=== PATIENT | male | born 1980 | race Caucasian/White ===

== ENCOUNTER 2016-10-12 18:18 | Emergency (ER) | payer MEDICAID ==
[~2016-10-12] VITALS: Ht 180.3 cm; Wt 72.2 kg
[2016-10-12 18:21] VITALS: BP 117/87
[2016-10-12] MEDS ORDERED: LORazepam 1MG TABLET PO ONE (18:30)
[2016-10-12] MEDS ORDERED: ONDANSETRON ODT 4 MG PO ONE (18:30)
== END 2016-10-12 18:43 | disposition left against medical advice (07) ==
LOC: ED 18:30
DX: F41.9 Anxiety disorder, unspecified (principal); R11.10 Vomiting, unspecified
CPT/HCPCS: 99281

== ENCOUNTER 2016-12-10 11:03 | Emergency (ER) | payer MEDICAID ==
[~2016-12-10] VITALS: Ht 170.2 cm; Wt 70.0 kg
[2016-12-10 11:16] VITALS: BP 124/83
[2016-12-10] MEDS ORDERED: ESCI10TA10 PO (11:35)
[2016-12-10] MEDS ORDERED: DEXT10TA7 PO (11:35)
[2016-12-10] MEDS ORDERED: ZOLP10TA PO (11:35)
[2016-12-10] MEDS ORDERED: TRAM50TA2 PO (11:35)
[2016-12-10 11:53] LABS: ASPARTATE AMINO TRANSFERASE 19 U/L (15-37); BLOOD UREA NITROGEN 12 mg/dL (7-18)
[2016-12-10 11:59] LABS: ACETAMINOPHEN < 2 mcg/mL (10-30)
[2016-12-10 15:10] LABS: DAU SCREEN DISCLAIMER
== END 2016-12-10 16:23 | disposition home or self-care (01) ==
LOC: ED 14:03
DX: F32.0 Major depressive disorder, single episode, mild (principal); F41.1 Generalized anxiety disorder
CPT/HCPCS: 36415; 80053; 80307; 80329; 85025; 99284; G0480

== ENCOUNTER 2017-09-11 21:06 | Emergency (ER) | payer MEDICAID ==
[~2017-09-11] VITALS: Ht 180.3 cm; Wt 85.0 kg
[~2017-09-11 21:06] MED LIST: DEXT10TA7 PO; ESCI10TA10 PO; TRAM50TA2 PO; ZOLP10TA PO
[2017-09-11 21:15] VITALS: BP 154/91
[2017-09-11] MEDS ORDERED: LORazepam 1MG TABLET PO ONE (22:00)
[2017-09-12] MEDS ORDERED: OLANZAPINE 10 MG TABLET PO SCH (09:00)
== END 2017-09-11 22:06 | disposition left against medical advice (07) ==
LOC: ED 22:00
DX: F41.1 Generalized anxiety disorder (principal); F17.200 Nicotine dependence, unspecified, uncomplicated; F32.9 Major depressive disorder, single episode, unspecified
CPT/HCPCS: 99284

== ENCOUNTER 2018-04-29 11:45 | Emergency (ER) | payer MEDICAID ==
[~2018-04-29] VITALS: Ht 180.3 cm; Wt 74.9 kg
[2018-04-29] MEDS ORDERED: LORazepam 1MG TABLET PO ONE (12:00)
[2018-04-29] MEDS ORDERED: LORazepam 1MG TABLET ONE (12:23)
[2018-04-29 12:28] VITALS: BP 140/96
== END 2018-04-29 13:17 | disposition home or self-care (01) ==
LOC: ED 13:00
DX: F41.1 Generalized anxiety disorder (principal); F43.10 Post-traumatic stress disorder, unspecified; F32.9 Major depressive disorder, single episode, unspecified; Z72.9 Problem related to lifestyle, unspecified
CPT/HCPCS: 93005; 99283

== ENCOUNTER 2018-10-10 02:25 | Inpatient (IN) | payer MEDICAID ==
[~2018-10-10] VITALS: Ht 180.3 cm; Wt 83.0 kg
--- NOTE | 2018-10-10 02:39 | NUR ---
PT STATES VOMITED BLOOD SINCE 4 PM YESTERDAY S/P USING METH, PT STATES IT HAPPENS ONCE A MONTH AND NOW HE DOESNT HAVE A PLACE TO LIVE
[2018-10-10] MEDS ORDERED: ONDANSETRON ODT 4 MG ONE (02:55)
[2018-10-10] MEDS ORDERED: ONDANSETRON ODT 4 MG PO ONE (03:00)
[2018-10-10 03:27] LABS: BASOPHILS # (AUTO) 0.07 x10^3/uL (0-0.1); BASOPHILS % (AUTO) 1 % (0-1); EOSINOPHILS # (AUTO) 0.07 x10^3/uL (0-0.4); EOSINOPHILS % (AUTO) 1 % (1-7); LYMPHOCYTES # (AUTO) 1.69 x10^3/uL (1-3.4); LYMPHOCYTES % (AUTO) 15 % (22-44); MD NO; MEAN CORPUSCULAR HEMOGLOBIN 27.9 pg (27.5-34.5); MEAN CORPUSCULAR HGB CONC 32.9 g/dL (33.2-36.2); MEAN CORPUSCULAR VOLUME 84.5 fL (81-97); MEAN PLATELET VOLUME 8.5 fL (7.4-10.4); MONOCYTES # (AUTO) 0.99 x10^3/uL (0.2-0.8); MONOCYTES % (AUTO) 9 % (2-9); NEUTROPHILS # (AUTO) 8.63 x10^3/uL (1.8-6.8); NEUTROPHILS % (AUTO) 75 % (42-75); PLATELET COUNT 318 x10^3/uL (130-400); RED BLOOD COUNT 5.28 x10^6/uL (4.38-5.82)
[2018-10-10 03:41] LABS: ALBUMIN 4.1 g/dL (3.4-5.0); ANION GAP 11 mmol/L (5-15); CALCIUM 9.3 mg/dL (8.5-10.1); CHLORIDE 100 mmol/L (98-107)
[2018-10-10 03:45] LABS: ALANINE AMINOTRANSFERASE 36 U/L (12-78); ALKALINE PHOSPHATASE 117 U/L (45-117); CREATININE 2.15 mg/dL (0.7-1.3); TOTAL PROTEIN 8.9 g/dL (6.4-8.2)
--- NOTE | 2018-10-10 03:45 | NUR ---
PT ASLEEP AND AWAITING ERP RECHECK.
[2018-10-10] MEDS ORDERED: PANTOPRAZOLE 40 MG IV ONE (04:26)
[2018-10-10] MEDS ORDERED: ACETAMINOPHEN 500 MG TABLET ONE (04:26)
[2018-10-10] MEDS ORDERED: ONDANSETRON 2MG/ML, 2ML ONE (04:26)
[2018-10-10] MEDS ORDERED: PANTOPRAZOLE 40 MG IV IVPush ONE (04:30)
[2018-10-10] MEDS ORDERED: SODIUM CHLORIDE 0.9% 1,000ML IVBOLUS ONE ×2 (04:30)
[2018-10-10] MEDS ORDERED: ONDANSETRON 2MG/ML, 2ML IVPush ONE (04:30)
[2018-10-10] MEDS ORDERED: ACETAMINOPHEN 325 MG TABLET PO ONE (04:30)
--- NOTE | 2018-10-10 04:30 | NUR ---
PT ASLEEP VSS AND NO DISTRESS AT THIS TIME.
[2018-10-10] MEDS ORDERED: SODIUM CHLORIDE 0.9% 1,000 ML IV SCH (04:46)
[2018-10-10] MEDS ORDERED: morphine SULFATE 10 MG/ML, 1ML IVPush PRN (05:00)
[2018-10-10] MEDS ORDERED: ONDANSETRON 2MG/ML, 2ML IVPush PRN (05:00)
[2018-10-10] MEDS ORDERED: LORazepam 2 MG/ML, 1ML IV PRN ×5 (05:00)
--- NOTE | 2018-10-10 06:24 | NUR ---
Romel jeffers in ED - 10/10/18 at 0625 by BRYNN PT WITH IV STARTED URINE TO LAB AND PT MEDICATED ORDERED. PT WITH IVF RUNNING ORDERED AND AWAITING TEST RESULTS AND ERP RECHECK.
--- NOTE | 2018-10-10 06:26 | NUR ---
PT ASLEEP NO CHANGE AND IS A TELE HOLD AT THIS TIME.
--- NOTE | 2018-10-10 06:47 | NUR ---
REPORT CALLED TO FLOOR PT READY FOR TRANSPORT.
[2018-10-10 07:31] VITALS: BP 106/63
[2018-10-10 08:40] LABS: AMPHETAMINE SCREEN, URINE Positive (Negative); BARBITURATE SCREEN, URINE Negative (Negative); BENZODIAZEPINE SCREEN, URINE Negative (Negative); CANNABINOID SCREEN, URINE Positive (Negative); COCAINE SCREEN, URINE Negative (Negative); METHADONE SCREEN, URINE Negative (Negative); OPIATE SCREEN, URINE Negative (Negative)
[2018-10-10] MEDS: LACTATED RINGERS 1,000 ML IV SCH ×3 (10:11→22:35)
[2018-10-10] MEDS ORDERED: POTASSIUM CHLORIDE 20 MEQ, MAGNESIUM SULFATE 1 GM, MVI ADULT 10 ML, THIAMINE 200 MG, FO... IV SCH (10:30)
[2018-10-10] MEDS: PANTOPRAZOLE 40 MG IV IVPush SCH (12:39)
[2018-10-10 12:42] LABS: BASOPHILS # (AUTO) 0.03 x10^3/uL (0-0.1); BASOPHILS % (AUTO) 0 % (0-1); EOSINOPHILS # (AUTO) 0.18 x10^3/uL (0-0.4); EOSINOPHILS % (AUTO) 2 % (1-7); LYMPHOCYTES # (AUTO) 2.09 x10^3/uL (1-3.4); LYMPHOCYTES % (AUTO) 25 % (22-44); MD NO; MEAN CORPUSCULAR HEMOGLOBIN 27.9 pg (27.5-34.5); MEAN CORPUSCULAR HGB CONC 32.9 g/dL (33.2-36.2); MEAN CORPUSCULAR VOLUME 84.9 fL (81-97); MEAN PLATELET VOLUME 8.6 fL (7.4-10.4); MONOCYTES # (AUTO) 0.78 x10^3/uL (0.2-0.8); MONOCYTES % (AUTO) 9 % (2-9); NEUTROPHILS % (AUTO) 63 % (42-75); PLATELET COUNT 265 x10^3/uL (130-400); RED BLOOD COUNT 4.59 x10^6/uL (4.38-5.82); RED CELL DISTRIBUTION WIDTH 15.1 % (9.4-14.8)
[2018-10-10] MEDS ORDERED: BUPR-86 PO (12:46)
[2018-10-10] MEDS ORDERED: GABA600T PO (12:46)
[2018-10-10] MEDS ORDERED: CLON0.5T11 PO (12:46)
[2018-10-10] MEDS ORDERED: POTASSIUM CHLORIDE 20 MEQ TAB.ER.PRT PO ONE (13:30)
[2018-10-10 15:30] VITALS: BP 110/76
[2018-10-10 21:54] VITALS: BP 116/65
[2018-10-11] MEDS: PANTOPRAZOLE 40 MG IV IVPush SCH (00:14)
[2018-10-11 01:04] VITALS: BP 114/72
[2018-10-11] MEDS: LACTATED RINGERS 1,000 ML IV SCH ×2 (04:51→05:58)
[2018-10-11 06:44] LABS: BASOPHILS # (AUTO) 0.02 x10^3/uL (0-0.1); BASOPHILS % (AUTO) 0 % (0-1); EOSINOPHILS # (AUTO) 0.24 x10^3/uL (0-0.4); EOSINOPHILS % (AUTO) 4 % (1-7); LYMPHOCYTES # (AUTO) 2.58 x10^3/uL (1-3.4); LYMPHOCYTES % (AUTO) 43 % (22-44); MD NO; MEAN CORPUSCULAR HEMOGLOBIN 27.5 pg (27.5-34.5); MEAN CORPUSCULAR HGB CONC 32.4 g/dL (33.2-36.2); MEAN CORPUSCULAR VOLUME 84.7 fL (81-97); MEAN PLATELET VOLUME 8.3 fL (7.4-10.4); MONOCYTES # (AUTO) 0.63 x10^3/uL (0.2-0.8); MONOCYTES % (AUTO) 11 % (2-9); NEUTROPHILS # (AUTO) 2.55 x10^3/uL (1.8-6.8); NEUTROPHILS % (AUTO) 42 % (42-75); PLATELET COUNT 265 x10^3/uL (130-400); RED BLOOD COUNT 4.65 x10^6/uL (4.38-5.82); RED CELL DISTRIBUTION WIDTH 15.8 % (9.4-14.8)
[2018-10-11 06:51] LABS: ANION GAP 5 mmol/L (5-15); CALCIUM 8.5 mg/dL (8.5-10.1); CHLORIDE 108 mmol/L (98-107); CREATININE 1.01 mg/dL (0.7-1.3)
[2018-10-11] MEDS ORDERED: GABAPENTIN 300 MG CAPSULE PO SCH (09:00)
== END 2018-10-11 07:20 | disposition left against medical advice (07) | DRG 377 ==
LOC: ED 04:10 → EDIP 04:18 → 4WST 07:19
PROVIDERS: ADMIT Internal Medicine; ATTEND Internal Medicine
DX: K92.0 Hematemesis (principal); N17.0 Acute kidney failure with tubular necrosis; E86.0 Dehydration; F10.129 Alcohol abuse with intoxication, unspecified; F15.10 Other stimulant abuse, uncomplicated; F17.210 Nicotine dependence, cigarettes, uncomplicated; F43.10 Post-traumatic stress disorder, unspecified; Z59.0 Homelessness; Z53.21 Procedure and treatment not carried out due to patient leaving prior to being seen by health care provider
CPT/HCPCS: 36415; 76770; 80048; 80053; 80307; 82570; 83690; 84100; 84300; 85025; 96361; 96374; 96375; G0378; J2405; J3411; J3475; J3480; Q0162; C9113; J2060; J2270; J7030; J7120

== ENCOUNTER 2018-10-17 21:14 | Emergency (ER) | payer MEDICAID ==
[~2018-10-17] VITALS: Ht 180.3 cm; Wt 79.5 kg
[~2018-10-17 21:14] MED LIST changes: +BUPR-86 PO; +CLON0.5T11 PO; +GABA600T PO
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
[2018-10-17] MEDS ORDERED: ONDANSETRON ODT 8 MG ONE (21:59)
[2018-10-17] MEDS ORDERED: PROMETHAZINE 25 MG/ML, 1ML ONE (21:59)
[2018-10-17] MEDS ORDERED: ONDANSETRON ODT 8 MG PO ONE (22:00)
[2018-10-17] MEDS ORDERED: PROMETHAZINE 25 MG/ML, 1ML IM ONE (22:00)
--- NOTE | 2018-10-17 22:04 | NUR ---
REPORT FROM TIFFANIE FLORENCE
--- NOTE | 2018-10-17 22:10 | NUR ---
PT REQUIRING SITTER FOR SAFETY. STRIP MACHINE OPERATOR AWARE. PT TO ROOM 39 VIA [facility] FOR SITTER OBS. REPORT TO TIFFANIE INGRAM
--- NOTE | 2018-10-17 22:10 | NUR ---
PT MEDICATED ORDERED FOR N/V. REPORT TO TIFFANIE AZUL WHO ASSUMED CARE OF PT. PT MOVED TO RM 39.
[2018-10-17 22:17] LABS: BASOPHILS # (AUTO) 0.13 x10^3/uL (0-0.1); BASOPHILS % (AUTO) 1 % (0-1); EOSINOPHILS # (AUTO) 0.11 x10^3/uL (0-0.4); EOSINOPHILS % (AUTO) 1 % (1-7); LYMPHOCYTES # (AUTO) 2.85 x10^3/uL (1-3.4); LYMPHOCYTES % (AUTO) 29 % (22-44); MD NO; MEAN CORPUSCULAR HEMOGLOBIN 27.7 pg (27.5-34.5); MEAN CORPUSCULAR HGB CONC 32.4 g/dL (33.2-36.2); MEAN CORPUSCULAR VOLUME 85.3 fL (81-97); MEAN PLATELET VOLUME 8.3 fL (7.4-10.4); MONOCYTES # (AUTO) 0.93 x10^3/uL (0.2-0.8); MONOCYTES % (AUTO) 10 % (2-9); NEUTROPHILS # (AUTO) 5.72 x10^3/uL (1.8-6.8); NEUTROPHILS % (AUTO) 59 % (42-75); PLATELET COUNT 370 x10^3/uL (130-400); RED BLOOD COUNT 5.22 x10^6/uL (4.38-5.82); RED CELL DISTRIBUTION WIDTH 15.1 % (9.4-14.8)
--- NOTE | 2018-10-17 22:18 | NUR ---
REPORT RECEIVED, POC DISCUSSED, CARE ASSUMED. URINE SAMPLE NEEDED, PT WANTING FOOD BUT EXPLAINED WILL HAVE TO WAIT FOR MEDICATION TO WORK SO NOT TO CAUSE MORE VOMITING. ICE CHIPS TO PT. SITTER IN VIEW OF PT, ROOM SECURED. PT NEEDS MEDICAL CLEARANCE.
[2018-10-17 22:25] LABS: ALBUMIN 4.3 g/dL (3.4-5.0); ANION GAP 14 mmol/L (5-15); CALCIUM 9.3 mg/dL (8.5-10.1); CHLORIDE 98 mmol/L (98-107); CREATININE 1.54 mg/dL (0.7-1.3); SALICYLATE LEVEL 5.4 mg/dL (2.8-20.0)
[2018-10-17] MEDS ORDERED: SODIUM CHLORIDE 0.9% 1,000ML IVBOLUS ONE (23:00)
[2018-10-17] MEDS ORDERED: SODIUM CHLORIDE FLUSH 10ML SYR IVF ONE (23:00)
--- NOTE | 2018-10-18 00:36 | NUR ---
PT SLEEPING, NAD. NO FURTHER VOMITING. TOLERATING ICE CHIPS.
--- NOTE | 2018-10-18 01:11 | NUR ---
URINE SENT TO LAB AND FOOD TO PT.
[2018-10-18 01:26] LABS: MICROSCOPIC NOT IND
[2018-10-18 01:31] LABS: CULTURE INDICATED? NO
--- NOTE | 2018-10-18 01:39 | NUR ---
TP RN: TELEPSYCH INITIATED.
[2018-10-18 01:51] LABS: AMPHETAMINE SCREEN, URINE Positive (Negative); BARBITURATE SCREEN, URINE Negative (Negative); BENZODIAZEPINE SCREEN, URINE Negative (Negative); CANNABINOID SCREEN, URINE Positive (Negative); COCAINE SCREEN, URINE Positive (Negative); METHADONE SCREEN, URINE Negative (Negative); OPIATE SCREEN, URINE Negative (Negative)
--- NOTE | 2018-10-18 02:09 | NUR ---
PT SLEEPING, TELEPYSCH INTITIATED BUT NO PRECAUTIONS ARE NEEDED PER DR JACOBS.
--- NOTE | 2018-10-18 03:13 | NUR ---
PT RESTING QUIETLY, NAD. VS UPDATED.
[2018-10-18 03:14] VITALS: BP 119/72
--- NOTE | 2018-10-18 04:08 | NUR ---
REPORT TO SOC.
--- NOTE | 2018-10-18 04:19 | NUR ---
ASSUMING CARE OF PT AT THIS TIME. PT ASLEEP IN [facility] AT THIS TIME. PT HAS SITTER OUTSIDE OF ROOM FOR DIRECT OBSERVATION OF PT. PT HAS TELEPSYCH MONITOR IN ROOM FOR CONSULT.
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
== END 2018-10-18 05:35 | disposition home or self-care (01) ==
LOC: ED 23:57
DX: N28.9 Disorder of kidney and ureter, unspecified (principal); Z72.9 Problem related to lifestyle, unspecified; F12.20 Cannabis dependence, uncomplicated; F15.20 Other stimulant dependence, uncomplicated; R11.2 Nausea with vomiting, unspecified; F43.10 Post-traumatic stress disorder, unspecified; J43.9 Emphysema, unspecified
CPT/HCPCS: 36415; 80048; 80307; 81003; 82040; 85025; 96360; 96361; 96372; 99283; J2550; J7030; Q0162

== ENCOUNTER 2018-12-19 21:49 | Emergency (ER) | payer MEDICAID ==
[~2018-12-19] VITALS: Ht 180.3 cm; Wt 75.5 kg
[2018-12-19 21:51] VITALS: BP 147/97
== END 2018-12-19 22:56 | disposition home or self-care (01) ==
LOC: ED 22:10
DX: L03.115 Cellulitis of right lower limb (principal); L03.116 Cellulitis of left lower limb; F17.200 Nicotine dependence, unspecified, uncomplicated
CPT/HCPCS: 99283

== ENCOUNTER 2019-07-22 07:52 | Emergency (ER) | payer MEDICAID ==
[~2019-07-22] VITALS: Ht 180.3 cm; Wt 81.0 kg
[~2019-07-22 07:52] MED LIST changes: +CLON-364 PO; -CLON0.5T11 PO
--- NOTE | 2019-07-22 08:23 | NUR ---
LOTTERY MANAGER: PT TO ROOM FROM LOBBY
[2019-07-22] MEDS ORDERED: SODIUM CHLORIDE FLUSH 10ML SYR IVF ONE (09:00)
[2019-07-22] MEDS ORDERED: ONDANSETRON 2MG/ML, 2ML IVPush ONE (09:00)
[2019-07-22] MEDS ORDERED: SODIUM CHLORIDE 0.9% 1,000ML IVBOLUS ONE (09:00)
--- NOTE | 2019-07-22 09:04 | NUR ---
BREAK RN: PT TO RADIOLOGY.
[2019-07-22 09:06] LABS: BASOPHILS # (AUTO) 0.01 x10^3/uL (0-0.1); BASOPHILS % (AUTO) 0 % (0-1); EOSINOPHILS % (AUTO) 1 % (1-7); LYMPHOCYTES # (AUTO) 1.43 x10^3/uL (1-3.4); LYMPHOCYTES % (AUTO) 15 % (22-44); MD NO; MEAN CORPUSCULAR HEMOGLOBIN 27.1 pg (27.5-34.5); MEAN CORPUSCULAR HGB CONC 32.6 g/dL (33.2-36.2); MEAN CORPUSCULAR VOLUME 83.1 fL (81-97); MEAN PLATELET VOLUME 8.1 fL (7.4-10.4); MONOCYTES # (AUTO) 0.75 x10^3/uL (0.2-0.8); MONOCYTES % (AUTO) 8 % (2-9); NEUTROPHILS # (AUTO) 7.39 x10^3/uL (1.8-6.8); NEUTROPHILS % (AUTO) 76 % (42-75); PLATELET COUNT 342 x10^3/uL (130-400); RED BLOOD COUNT 5.54 x10^6/uL (4.38-5.82); RED CELL DISTRIBUTION WIDTH 15.6 % (9.4-14.8)
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
[2019-07-22 09:13] LABS: ALANINE AMINOTRANSFERASE 31 U/L (12-78); ALBUMIN 3.5 g/dL (3.4-5.0); ANION GAP 6 mmol/L (5-15); CALCIUM 9.1 mg/dL (8.5-10.1); CHLORIDE 106 mmol/L (98-107)
[2019-07-22 09:16] LABS: ALKALINE PHOSPHATASE 120 U/L (45-117); BILIRUBIN,TOTAL 0.3 mg/dL (0.2-1.0); CREATININE 1.14 mg/dL (0.7-1.3); TOTAL PROTEIN 8.4 g/dL (6.4-8.2)
[2019-07-22 09:19] LABS: RAPID INFLUENZA A Negative (Negative); RAPID INFLUENZA B Negative (Negative)
--- NOTE | 2019-07-22 09:22 | NUR ---
report to primary rn Amy
[2019-07-22] MEDS ORDERED: ONDANSETRON 2MG/ML, 2ML ONE (09:29)
--- NOTE | 2019-07-22 10:30 | NUR ---
MD EVALUATING PT
[2019-07-22 10:59] LABS: CULTURE INDICATED? YES; MICROSCOPIC INDICATED
[2019-07-22] MEDS ORDERED: IBUPROFEN 600 MG TABLET ONE (11:39)
[2019-07-22] MEDS ORDERED: ONDANSETRON ODT 4 MG ONE (11:39)
[2019-07-22 11:41] VITALS: BP 138/89
[2019-07-22] MEDS ORDERED: ONDANSETRON ODT 4 MG PO ONE (12:00)
[2019-07-22] MEDS ORDERED: IBUPROFEN 600 MG TABLET PO ONE (12:00)
== END 2019-07-22 12:00 | disposition home or self-care (01) ==
LOC: ED 09:48
DX: R11.0 Nausea (principal); T43.225A Adverse effect of selective serotonin reuptake inhibitors, initial encounter; Y92.89 Other specified places as the place of occurrence of the external cause
CPT/HCPCS: 36415; 71046; 80053; 81001; 85025; 87086; 87400; 96374; 99284; J2405; J7030; Q0162; 99285

== ENCOUNTER 2019-08-31 03:42 | Emergency (ER) | payer MEDICAID ==
[~2019-08-31] VITALS: Ht 180.3 cm; Wt 76.9 kg
[2019-08-31] MEDS ORDERED: ZOLP-413 PO (03:56)
[2019-08-31] MEDS ORDERED: HYDR50CA PO (03:56)
[2019-08-31] MEDS ORDERED: CLON0.1T22 PO (03:56)
[2019-08-31 04:00] LABS: BASOPHILS # (AUTO) 0.04 x10^3/uL (0-0.1); BASOPHILS % (AUTO) 1 % (0-1); EOSINOPHILS # (AUTO) 0.05 x10^3/uL (0-0.4); EOSINOPHILS % (AUTO) 1 % (1-7); LYMPHOCYTES # (AUTO) 2.81 x10^3/uL (1-3.4); LYMPHOCYTES % (AUTO) 37 % (22-44); MD NO; MEAN CORPUSCULAR HEMOGLOBIN 27.3 pg (27.5-34.5); MEAN CORPUSCULAR HGB CONC 33.6 g/dL (33.2-36.2); MEAN CORPUSCULAR VOLUME 81.2 fL (81-97); MONOCYTES # (AUTO) 0.76 x10^3/uL (0.2-0.8); MONOCYTES % (AUTO) 10 % (2-9); NEUTROPHILS # (AUTO) 3.83 x10^3/uL (1.8-6.8); NEUTROPHILS % (AUTO) 51 % (42-75); PLATELET COUNT 307 x10^3/uL (130-400); RED BLOOD COUNT 5.33 x10^6/uL (4.38-5.82)
[2019-08-31] MEDS ORDERED: ZIPRASIDONE 20 MG INJ IM ONE ×2 (04:00)
--- NOTE | 2019-08-31 04:02 | NUR ---
Pt belongings in large black trash bag, bag labeled and placed in locker for safe keeping.
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
--- NOTE | 2019-08-31 04:10 | NUR ---
PT MEDICATED PER JUL. POC DISCUSSED. PT AWARE A UA IS NEEDED. PT AGREEABLE TO PROVIDE SAMPLE. PT AWARE HE WILL BE EVALUATED BY TELEPSYCH THIS MORNING. PT AGREEABLE TO THIS PLAN HOWEVER EXPRESSING HIS ANGER ABOUT BEING ON A HOLD.
[2019-08-31 04:12] LABS: ALANINE AMINOTRANSFERASE 27 U/L (12-78); ANION GAP 12 mmol/L (5-15); CALCIUM 9.2 mg/dL (8.5-10.1); CHLORIDE 104 mmol/L (98-107); CREATININE 1.26 mg/dL (0.7-1.3); SALICYLATE LEVEL 6.3 mg/dL (2.8-20.0)
[2019-08-31 04:14] LABS: ALKALINE PHOSPHATASE 107 U/L (45-117); BILIRUBIN,TOTAL 0.4 mg/dL (0.2-1.0); TOTAL PROTEIN 8.9 g/dL (6.4-8.2)
--- NOTE | 2019-08-31 04:47 | NUR ---
pt asleep in [facility] at this time; nadn. request sitter from supervisor [employer], Tom.
--- NOTE | 2019-08-31 05:25 | NUR ---
pt asleep in [facility] at this time. all restraints removed.
--- NOTE | 2019-08-31 06:04 | NUR ---
PT ASLEEP IN GURNEY AT THIS TIME; NADN. EQUAL BILATERAL RISE AND FALL OF CHEST NOTED.
--- NOTE | 2019-08-31 06:55 | NUR ---
PT REPORT FROM ALVAREZ Velasco RN. PT CARE TO BE ASSUMED. SITTER OUTSIDE PT ROOM
[2019-08-31 06:57] LABS: AMPHETAMINE SCREEN, URINE Positive (Negative); BARBITURATE SCREEN, URINE Negative (Negative); BENZODIAZEPINE SCREEN, URINE Negative (Negative); CANNABINOID SCREEN, URINE Positive (Negative); COCAINE SCREEN, URINE Negative (Negative); METHADONE SCREEN, URINE Negative (Negative); OPIATE SCREEN, URINE Negative (Negative)
--- NOTE | 2019-08-31 07:09 | NUR ---
PT ASLEEP ON BED, EVEN CHEST RISE & FALL NOTED, SIDE RAILS UP X2. Addendum: 08/31/19 at 0713 by LAY NOT IN RESTRAINTS
--- NOTE | 2019-08-31 07:10 | NUR ---
LEGAL HOLD ON CHART, SIGNED BY [employer].
--- NOTE | 2019-08-31 08:16 | NUR ---
BREAKFAST TRAY ORDERED.
[2019-08-31 08:55] VITALS: BP 127/76
--- NOTE | 2019-08-31 08:59 | NUR ---
LYING QUIETLY ON BED. BREAKFAST TRAY DELIVERED.
--- NOTE | 2019-08-31 10:02 | NUR ---
PACKET FAXED TO [facility], [facility] AND [facility]
--- NOTE | 2019-08-31 10:37 | NUR ---
RESTING QUIETLY ON BED. ADDITIONAL BLANKET PROVIDED.
--- NOTE | 2019-08-31 11:17 | NUR ---
ANTHONY FROM [facility] CALLED FOR PT REPORT. REPORT PROVIDED. ANTHONY WILL CHECK W/ FACILITY PHYSICIAN RE: ADMISSION AND THEN WILL CALL BACK.
--- NOTE | 2019-08-31 11:45 | NUR ---
LUNCH TRAY ORDERED
--- NOTE | 2019-08-31 12:13 | NUR ---
LUNCH TRAY DELIVERED.
--- NOTE | 2019-08-31 12:47 | NUR ---
PT REPORT TO TIFFANIE PERSAUD. PT CARE TRANSFERRED.
--- NOTE | 2019-08-31 12:55 | NUR ---
SBAR HAND-OFF REPORT RECEIVED FROM TIFFANIE PORTER. ASSUMING CARE OF PATIENT.
[2019-08-31] MEDS ORDERED: MAALOX/HYOSCYAMINE/LIDOCAINE 45 ML BTL ONE (12:58)
[2019-08-31] MEDS ORDERED: MAALOX/HYOSCYAMINE/LIDOCAINE 45 ML BTL PO ONE (13:00)
[2019-08-31] MEDS ORDERED: LORazepam 1MG TABLET ONE (13:39)
--- NOTE | 2019-08-31 13:45 | NUR ---
Patient given discharge instructions and they have confirmed that they understand the instructions. Patient ambulatory with steady gait.
[2019-08-31] MEDS ORDERED: LORazepam 1MG TABLET PO ONE (14:00)
== END 2019-08-31 13:46 | disposition home or self-care (01) ==
LOC: ED 07:48
DX: R45.851 Suicidal ideations (principal); F10.239 Alcohol dependence with withdrawal, unspecified; J43.9 Emphysema, unspecified
CPT/HCPCS: 36415; 80053; 80307; 85025; 96372; 99285; J3486; 99284

== ENCOUNTER 2020-09-26 09:03 | Emergency (ER) | payer MEDICAID ==
[~2020-09-26] VITALS: Ht 180.3 cm; Wt 93.9 kg
[~2020-09-26 09:03] MED LIST changes: +CLON0.1T22 PO; +HYDR50CA PO; +ZOLP-413 PO
--- NOTE | 2020-09-26 09:26 | NUR ---
patient arrives with n/v and gastric issues for 10 days. abdominal pain.
--- NOTE | 2020-09-26 09:33 | NUR ---
patient now reports black stool
[2020-09-26 09:55] LABS: BASOPHILS % (AUTO) 1 % (0-1); EOSINOPHILS % (AUTO) 1 % (1-7); LYMPHOCYTES % (AUTO) 29 % (22-44); MEAN CORPUSCULAR HEMOGLOBIN 26.9 pg (27.5-34.5); MEAN PLATELET VOLUME 8.3 fL (7.4-10.4); MONOCYTES % (AUTO) 7 % (2-9); NEUTROPHILS % (AUTO) 63 % (42-75); PLATELET COUNT 310 x10^3/uL (130-400); RED CELL DISTRIBUTION WIDTH 15.2 % (9.4-14.8)
[2020-09-26 09:57] LABS: MD NO
[2020-09-26] MEDS ORDERED: FAMOTIDINE 20 MG/2 ML IVPush ONE (10:00)
[2020-09-26] MEDS ORDERED: SODIUM CHLORIDE 0.9% 1,000ML IVBOLUS ONE (10:00)
[2020-09-26] MEDS ORDERED: ONDANSETRON 2MG/ML, 2ML IVPush ONE (10:00)
[2020-09-26 10:07] LABS: ALANINE AMINOTRANSFERASE 29 U/L (12-78); ALBUMIN 4.5 g/dL (3.4-5.0); ANION GAP 3 mmol/L (5-15); CALCIUM 9.6 mg/dL (8.5-10.1); CHLORIDE 104 mmol/L (98-107); CREATININE 1.27 mg/dL (0.7-1.3)
--- NOTE | 2020-09-26 10:07 | NUR ---
PATIENT STILL CAN'T URINATE. WILL LET REMAINING NS INFUSE THEN REASSESS
[2020-09-26 10:09] LABS: ALKALINE PHOSPHATASE 147 U/L (45-117); BILIRUBIN,TOTAL 0.3 mg/dL (0.2-1.0); TOTAL PROTEIN 9.5 g/dL (6.4-8.2)
--- NOTE | 2020-09-26 10:37 | NUR ---
SENT CLEAN CATCH URINE
[2020-09-26 11:06] LABS: MICROSCOPIC INDICATED
[2020-09-26 12:27] VITALS: BP 128/78
== END 2020-09-26 12:38 | disposition home or self-care (01) ==
LOC: ED 10:08
DX: R11.2 Nausea with vomiting, unspecified (principal); R10.84 Generalized abdominal pain; R19.7 Diarrhea, unspecified; F17.210 Nicotine dependence, cigarettes, uncomplicated; J43.9 Emphysema, unspecified
CPT/HCPCS: 36415; 80053; 81001; 83690; 85025; 96361; 96374; 96375; 99284; 99406; J2405; J7030